=== PATIENT | male | born 1980 | race Caucasian/White ===

== ENCOUNTER 2023-10-21 16:55 | Emergency (ER) | payer MEDICAID ==
[~2023-10-21] VITALS: Ht 180.3 cm; Wt 91.0 kg
[2023-10-21 17:19] VITALS: BP 102/67; PULSE 71; RESP 18; TEMP 98.6; O2SAT 98
[2023-10-21] MEDS ORDERED: CEPH500C2 MT (20:26)
[2023-10-21] MEDS ORDERED: BO1 TP (20:26)
== END 2023-10-21 20:39 | disposition home or self-care (01) ==
LOC: ER 16:55
DX: H66.42 Suppurative otitis media, unspecified, left ear (principal); Z98.890 Other specified postprocedural states
CPT/HCPCS: 10060; 99283

== ENCOUNTER 2024-12-06 23:43 | Emergency (ER) | payer MEDICAID ==
[~2024-12-06] VITALS: Ht 170.2 cm; Wt 90.0 kg
[~2024-12-06 23:43] MED LIST: BO1 TP; CEPH500C2 MT
[2024-12-07 00:47] LABS: BASOPHILS % 0.2 % (0.0-2.0); EOSINOPHILS % 3.1 % (0.0-5.0); HEMATOCRIT. 38.9 % (42.0-52.0); HEMOGLOBIN. 13.3 g/dL (14.0-18.0); LYMPHOCYTES % 30.9 % (20.0-50.0); MEAN PLATELET VOLUME 8.6 fl (7.4-10.4); MONOCYTES % 6.3 % (2.0-8.0); NEUTROPHILS % 59.5 % (40.0-76.0); PLATELET 276 x1000/uL (130-400); RED BLOOD CELL COUNT 4.52 mill/uL (4.7-6.1); RED CELL DISTRIBUTION WIDTH 14.0 % (11.6-14.6)
[2024-12-07 00:59] LABS: INR 0.9
[2024-12-07 01:10] LABS: CREATININE 0.9 mg/dL (0.6-1.3); UREA NITROGEN BLOOD 8 mg/dL (9-23)
[2024-12-07 01:11] LABS: TROPONIN I HIGH SENSITIVITY < 4 ng/L (3.0-53)
[2024-12-07] MEDS: METHYLPREDNISOLONE SOD SUCC 125MG/2ML (ACT-O-VIAL) IV ONE (01:29)
[2024-12-07] MEDS ORDERED: ALBU18HF2 IH (02:23)
[2024-12-07] MEDS: IPRATROPIUM/ALBUTEROL 0.5-3(2.5)MG/3ML NEB HHN ONE (02:29)
[2024-12-07 02:30] VITALS: PULSE 75; RESP 12; O2SAT 98
[2024-12-07 03:05] VITALS: BP 130/70; PULSE 77; RESP 12; TEMP 37; O2SAT 98
== END 2024-12-07 03:08 | disposition home or self-care (01) ==
LOC: ER 23:43
DX: F10.129 Alcohol abuse with intoxication, unspecified (principal); F12.10 Cannabis abuse, uncomplicated; F17.200 Nicotine dependence, unspecified, uncomplicated; Z79.899 Other long term (current) drug therapy; Y90.6 Blood alcohol level of 120-199 mg/100 ml
CPT/HCPCS: 93005; 99285; 80048; 80320; 83880; 85025; 85610; 84484; 36415; 71045; 94640; 98960; 96374; J2919; Z7610 ×2; 94070; 94664; G0480